=== PATIENT | female | born 2000 | race African-American/Black ===

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

== ENCOUNTER 2022-10-13 23:29 | Emergency (ER) | payer OTHER ==
[2022-10-13] MEDS ORDERED: Pseudoephedrine HCl 30 MG TAB ONE (23:48)
[2022-10-13] MEDS ORDERED: diphenhydrAMINE 25 MG CAP ONE (23:48)
== END 2022-10-14 00:12 | disposition home or self-care (01) ==
LOC: MADERS 23:29
DX: R09.81 Nasal congestion (principal)
CPT/HCPCS: 99283

== ENCOUNTER 2023-02-06 18:55 | Emergency (ER) | payer OTHER ==
[2023-02-06 19:24] LABS: Bilirubin Negative (Negative); Blood, Urine Negative (Negative); Glucose, Urine (Dipstick) Negative (Negative); Ketone, Urine Negative (Negative); Leukocyte Trace (Negative); Nitrite Negative (Negative); Protein, Urine (Dipstick) 100 mg/dL (Neg-Trace); Urobilinogen 0.2 mg/dL (Less than 2)
[2023-02-06 19:27] LABS: Pregnancy Test - Urine (BHCG) POSITIVE (Negative); Pregu Control Background? CLEAR/WHITE (CLR/WHITE); Pregu Control Bar Appear? YES (CONTROL BAR); Specific Gravity 1.028 (1.002-1.036)
[2023-02-06 19:30] LABS: Clarity Hazy (Clear); Specific Gravity, Urine 1.028 (1.002-1.036)
[2023-02-06 19:31] LABS: Bacteria/HPF 2+ HPF (None Seen); CAUTI Indications for Culture Pelvic or flank pain; Mucous/LPF 1+ LPF (<2+); RBC/HPF 0-3 HPF (0-3)
[2023-02-06 19:32] LABS: Urine Culture Reflex Yes Yes
== END 2023-02-06 19:20 | disposition left against medical advice (07) ==
LOC: MADERS 18:55
DX: O99.891 Other specified diseases and conditions complicating pregnancy (principal); R10.12 Left upper quadrant pain; R10.11 Right upper quadrant pain; Z3A.28 28 weeks gestation of pregnancy
CPT/HCPCS: 81001; 81025; 87086; 99284